=== PATIENT | female | born 1955 | race Caucasian/White ===

== ENCOUNTER → 2019-01-26 | Outpatient (CLI) | payer OTHER | LOC: FIMAGING 08:37 | DX: Z12.31 Encounter for screening mammogram for malignant neoplasm of breast (principal) ==

== ENCOUNTER → 2019-02-05 | Outpatient (CLI) | payer OTHER | LOC: BMCIMAGING 08:52 | PROVIDERS: ATTEND Internal Medicine | DX: R05 Cough (principal); J40 Bronchitis, not specified as acute or chronic; R91.1 Solitary pulmonary nodule ==

== ENCOUNTER 2019-02-20 03:35 | Emergency (ER) | payer OTHER ==
[2019-02-20] MEDS ORDERED: CEPHALEXIN 500 MG CAP PO ONE (05:02)
[2019-02-20] MEDS ORDERED: CEPHALEXIN 500MG PREPACK#4 BTL TAKEHOME ONE (05:02)
[2019-02-20] MEDS ORDERED: PHENAZOPYRIDINE HCL 200 MG TAB PO ONE (05:04)
--- NOTE | 2019-02-20 05:04 | EDPHY ---
H & P Stated Complaint: urinary frequency, passing blood clots in urine Time Seen by Provider: 02/20/19 04:52 HPI/ROS: HPI The patient presents with several hours of dysuria, urgency, frequency which began tonight. This was then followed by hematuria. She began to pass clots of blood. She does not have any flank pain, nausea, vomiting, fever. REVIEW OF SYSTEMS 10 systems were reviewed and negative with the exception of the elements mentioned in the history of present illness. PMHx: Healthy Soc Hx: Here with her partner PHYSICAL General Appearance: Alert, no distress Eyes: Pupils equal and round no pallor or injection ENT, Mouth: Mucous membranes moist Respiratory: There are no retractions, lungs are clear to auscultation Cardiovascular: Regular rate and rhythm Gastrointestinal: Abdomen is soft with mild suprapubic tenderness, no masses, bowel sounds normal Neurological: A&O, moves all extremities Skin: Warm and dry, no rashes Musculoskeletal: Neck is supple non tender Extremities: symmetrical, full range of motion Psychiatric: Patient is oriented X 3, there is no agitation Source: Patient Exam Limitations: No limitations - Personal History Current Tetanus Diphtheria and Acellular Pertussis (TDAP): No - Medical/Surgical History Hx Asthma: No Hx Chronic Respiratory Disease: No Hx Diabetes: No Hx Cardiac Disease: No Hx Renal Disease: No Hx Cirrhosis: No Hx Alcoholism: No Hx HIV/AIDS: No Hx Splenectomy or Spleen Trauma: No Other PMH: Denies - Social History Smoking Status: Never smoked Constitutional: Initial Vital Signs Temperature (C) 36.7 C 02/20/19 03:36 Heart Rate 72 02/20/19 03:36 Respiratory Rate 16 02/20/19 03:36 Blood Pressure 169/108 H 02/20/19 03:36 O2 Sat (%) 97 02/20/19 03:36 O2 Delivery Mode Room Air Allergies/Adverse Reactions: No Known Allergies Allergy (Unverified 02/20/19 03:40) Home Medications: Medication Instructions Recorded Cephalexin [Keflex (*)] 500 mg PO Q6H #28 cap 02/20/19 Medical Decision Making Differential Diagnosis: This is a 64-year-old female who is healthy who presents with irritative voiding symptoms and hematuria. UA suggestive of hemorrhagic cystitis. She does not have any flank pain or vomiting making ureterolithiasis unlikely. She does not appear to have pyelonephritis. I will treat her with Keflex here as well as peridium. I have sent a urine culture. - Data Points Medications Given: Discontinued Medications Cephalexin (Keflex 500 Mg Prepack#4) 1 btl TAKEHOME EDNOW ONE PRN Reason: Protocol Stop: 02/20/19 05:03 Last Admin: 02/20/19 05:11 Dose: 1 btl Cephalexin HCl (Keflex) 500 mg PO EDNOW ONE PRN Reason: Protocol Stop: 02/20/19 05:03 Last Admin: 02/20/19 05:11 Dose: 500 mg Phenazopyridine HCl (Pyridium) 200 mg PO EDNOW ONE Stop: 02/20/19 05:05 Last Admin: 02/20/19 05:11 Dose: 200 mg Departure - Departure Disposition: Home, Routine, Self-Care Clinical Impression: Urinary tract infection Condition: Good Instructions: Cephalexin (By mouth), Urinary Tract Infection in Women (ED) Additional Instructions: You can take pyridium 200 mg every 6 hr as needed for painful urination. Referrals: Carla Galarza MD [Primary Care Provider] - As per Instructions Prescriptions: Cephalexin [Keflex (*)] 500 mg PO Q6H #28 cap
[2019-02-20 05:15] VITALS: BP 133/67
== END 2019-02-20 05:13 | disposition home or self-care (01) ==
DX: R35.0 Frequency of micturition (principal)

== ENCOUNTER → 2019-03-03 | Outpatient (CLI) | payer OTHER | LOC: FIMAGING 15:09 | PROVIDERS: ATTEND Internal Medicine | DX: R05 Cough (principal); R91.1 Solitary pulmonary nodule; I25.10 Atherosclerotic heart disease of native coronary artery without angina pectoris; X00.1XXA Exposure to smoke in uncontrolled fire in building or structure, initial encounter ==

== ENCOUNTER → 2019-03-10 | Outpatient (CLI) | payer OTHER | LOC: BMCIMAGING 13:38 | PROVIDERS: ATTEND Internal Medicine | DX: Z13.820 Encounter for screening for osteoporosis (principal); M81.0 Age-related osteoporosis without current pathological fracture ==